=== PATIENT | male | born 1945 | race Caucasian/White ===

== ENCOUNTER 2022-09-02 12:54 | Outpatient (CLI) | payer MEDICARE, SELFPAY | END 2022-09-02 12:55 | disposition home or self-care (01) | LOC: ANHAUDIO 12:56 | PROVIDERS: PCP Nurse Practitioner Family; Visit Provider Otolaryngology | DX: H93.19 Tinnitus, unspecified ear (principal); H90.3 Sensorineural hearing loss, bilateral | CPT/HCPCS: 92557; 92567 ==

== ENCOUNTER 2024-08-16 12:09 | Emergency (ER) | payer MEDICARE, SELFPAY ==
[2024-08-16 12:23] VITALS: PULSE 80; RESP 16; TEMP 36.7; O2SAT 95
--- NOTE | 2024-08-16 12:30 | ED.URI ---
HPI - URI/Sore Throat General Chief Complaint: Upper Respiratory Infection Stated Complaint: Sinus infection Time Seen by Provider: 08/16/24 12:30 Source: patient Mode of arrival: ambulatory Limitations: no limitations History of Present Illness HPI Narrative: 78-year-old male presents with complaint of postnasal drainage, nasal and sinus congestion, sinus pressure, sinus headaches for the past 10 days. Worsening of postnasal drainage and sinus pressure over the last 2 days. Afebrile. No chest pain or shortness of breath. All systems reviewed and negative except as noted above. Related Data Home Medications ?Medication ?Instructions ?Recorded ?Confirmed ?Last Taken ?Type apixaban 5 mg tablet (Eliquis) 5 mg PO BID 05/09/23 08/16/24 Unknown History lisinopril 20 mg tablet 20 mg PO BID 05/09/23 08/16/24 Unknown History metoprolol tartrate 50 mg tablet 50 mg PO BID 05/09/23 08/16/24 Unknown History Allergies Allergy/AdvReac Type Severity Reaction Status Date / Time Sulfa (Sulfonamide Allergy Unknown Unknown Verified 08/16/24 12:22 Antibiotics) Review of Systems Review of Systems: CONSTITUTIONAL: Denies fever, chills, or sweats. EYES: Denies visual changes, redness, or discharge. ENT: Reports rhinorrhea, congestion, sinus pressure, postnasal drainage. Denies sore throat, or otalgia. CARDIOVASCULAR: Denies chest pain, palpitations, or edema. RESPIRATORY: Denies cough or dyspnea. GASTROINTESTINAL: Denies abdominal pain, nausea, vomiting, or diarrhea. GENITOURINARY: Denies dysuria or hematuria. SKIN: Denies rash or itching. MUSCULOSKELETAL: Denies back pain, joint pain, or myalgia. NEUROLOGIC: Denies headache, numbness, or weakness. PSYCHIATRIC: Denies anxiety or depression. All other systems reviewed are negative, except as documented in HPI. [facility]LY [facility] Past Medical History Medical History Atrial fibrillation Chronic atrial fibrillation Dyslipidemia Essential (primary) hypertension Hypertension Tinnitus Surgical History Surgical History History of hernia surgery 2006 - right inguinal hernia [place] teeth extracted Family History Family History Other Family history of atrial fibrillation Hypertension Social History Social History Social History: Caffeine-none Smoking status: Former smoker Tobacco type: cigarettes Second hand tobacco smoke exposure: No Smoking end date: 07/11/81 Alcohol intake: never Substance use: never Substance use type: does not use Lack of Transportation: No Lack of Food: Never True Current Housing: I Have Housing Concerned About Future Housing: No Difficulty Paying Gas/Electric Bills: No Difficulty Paying for Meds: Decline to Answer Currently Unemployed: No Education: High School Diploma/GED Difficulty w/ Childcare or Family Care: No Gender identity (if verbalized by the patient): Male Comments At time of signature, agree with nursing past medical, surgical, social and family history. There is no relevant family history pertinent to the presenting complaint. Exam Narrative: GENERAL: This is a well-nourished, well-developed patient, in no apparent distress. HEAD: normocephalic, atraumatic. EYES: PERRL. Sclera clear/white. Vision is grossly intact. EARS: External ears normal, auditory canals clear and without drainage, TMs normal without perforation. Hearing grossly intact. NOSE: External nose normal with congestion, purulent nasal drainage, erythema and swelling to bilateral nares. Frontal sinus tenderness on palpation. THROAT: Mucous membranes moist, erythematous with postnasal drainage. No swelling or exudates. NECK: Neck supple, non-tender without lymphadenopathy, masses or thyromegaly. CARDIOVASCULAR: Regular rate and rhythm without murmurs, gallops, or rubs. RESPIRATORY: Clear to auscultation. Breath sounds equal bilaterally. No wheezes, rales, or rhonchi. SKIN: warm, Dry, intact with no suspicious lesions or rash, good texture and turgor. NEURO: awake, alert, and oriented to person, place and time. There were no obvious focal neurologic abnormalities. EXTREMITIES: No joint tenderness, effusion, or edema noted. Course Course Level of Care: Express Care Visit Vital Signs Vital signs: Vital Signs Temperature 36.7 C 08/16/24 12:23 Pulse Rate 80 08/16/24 12:23 Respiratory Rate 16 02/06/25 12:23 Pulse Oximetry 95 08/16/24 12:23 Temperature 36.7 C 08/16/24 12:23 Pulse Rate 80 08/16/24 12:23 Respiratory Rate 16 08/16/24 12:23 Blood Pressure 147/97 H 08/16/24 12:38 Pulse Oximetry 95 08/16/24 12:23 Reviewed MDM - URI/Sore Throat MDM Narrative Medical decision making narrative: Will treat patient with antibiotic for bacterial sinusitis due to duration of symptoms and exam findings. Patient is alert, nontoxic. No respiratory distress. Please be advised this is a medical document. It is intended for [id number] communication. It is written in medical language and may contain unfamiliar abbreviations or verbiage. Medical documents are intended to carry relevant information, facts as evident, and the clinical opinion of the practitioner at the time of the encounter. This report may have been done utilizing a voice recognition system. Attempts have been made to correct errors. However, there may be uncorrected grammatical, spelling, and recognition errors present. The file time of this note does not necessarily represent the time of service. Differential Diagnosis Differential diagnosis: Likely upper respiratory infection, sinusitis and viral infection Discharge Plan Discharge Clinical Impression: Acute bacterial sinusitis Patient Disposition: Home, Self-Care Condition: Stable Instructions: Antibiotic Form, Sinusitis (ED) Additional Instructions: Take antibiotic as prescribed until gone. Continue Coricidin and Flonase daily. May take Benadryl as needed at bedtime to treat congestion. Place cool mist humidifier in bedroom where you sleep. Drink at least 64 oz of water a day. Follow-up with your doctor if symptoms are not improving. Patient Language: Thai Prescriptions: New amoxicillin 875 mg tablet 875 mg PO Q12H 7 Days Qty: 14 0RF No Action lisinopril 20 mg tablet 20 mg PO BID Eliquis 5 mg tablet 5 mg PO BID metoprolol tartrate 50 mg tablet 50 mg PO BID azelastine 137 mcg (0.1 %) spray,non-aerosol 137 mcg intranasal . q.h.s. Qty: 30 3RF Rx Instructions: administer into each nostril q.h.s. clotrimazole 1 % solution 1 applic topical . as direct Qty: 30 3RF Rx Instructions: put 4 drops in each ear 3 times per week at bedtime with ear up for 1 minute after amlodipine 5 mg tablet 5 mg PO DAILY Qty: 90 0RF clotrimazole 1 % solution 1 applic topical TID Qty: 30 2RF Rx Instructions: put 4 drops in right ear canal t.i.d. with ear up for 1 minute afterwards Follow-up/Referrals: Shital Hummel MD [Primary Care Provider] - Time of Disposition: 12:36
[2024-08-16 12:38] VITALS: BP 147/97
== END 2024-08-16 12:46 | disposition home or self-care (01) ==
PROVIDERS: Emergency Provider Nurse Practitioner Family; PCP Family Medicine
DX: J01.90 Acute sinusitis, unspecified (principal); Z87.891 Personal history of nicotine dependence; I48.20 Chronic atrial fibrillation, unspecified; I10 Essential (primary) hypertension; E78.5 Hyperlipidemia, unspecified; Z79.01 Long term (current) use of anticoagulants
CPT/HCPCS: 99213; G0463

== ENCOUNTER 2025-04-18 00:12 | Emergency (ER) | payer MEDICARE, SELFPAY ==
[2025-04-18] VITALS (8 sets, daily range): BP systolic 156–192; BP diastolic 95–116; PULSE 70–84; RESP 13–19; TEMP 36.6; O2SAT 99–100
--- NOTE | ~2025-04-18 | CT_ITS ---
EXAMINATION: CTA brain carotid DATE: 04/18/2025 06:50 INDICATION: Neck pain. TECHNIQUE: Computed tomographic angiography (CTA) of the head was performed without and with 100 mL Omnipaque-350 intravenous contrast. CTA of the neck was performed with intravenous contrast. Automated exposure control and iterative reconstruction technique were employed. The dose-length product was 1939.70 mGy- cm. Maximum intensity projection and volume rendered 3D-reconstructions were created by the technologist on a separate workstation. COMPARISON: None. FINDINGS: HEAD CTA: There are cystic areas in the deep white matter of the frontal and parietal lobes. There is no intracranial hemorrhage, acute infarction, or abnormal intracranial mass lesion. The ventricles are normal in size. The orbits are normal. There is mild mucosal thickening in the ethmoid sinuses. The mastoid air cells are normal. The vertebral arteries are codominant. There is no significant stenosis of basilar artery or the posterior cerebral arteries. There is no significant stenosis of the intracranial internal carotid arteries or anterior or middle cerebral arteries. Anterior communicating artery is normal. The posterior communicating arteries are normal. There is no aneurysm. NECK CTA: There is a 2.7 cm nodule in right thyroid lobe. There are no pathologically enlarged lymph nodes. There is no significant stenosis of the vertebral arteries. There is mild plaque in the proximal internal carotid arteries. There is 0% stenosis of the proximal right internal carotid artery relative to normal distal artery lumen diameter (NASCET criteria). There is 0% stenosis of the proximal left internal carotid artery relative to normal distal artery lumen diameter. There is severe cervical spondylosis. IMPRESSION: 1. Cystic areas in the deep white matter of the frontal and parietal lobes, which may be prominent perivascular spaces or cystic encephalomalacia. 2. No aneurysm or significant intracranial arterial stenosis. 3. 0% stenosis of the proximal internal carotid arteries relative to normal distal artery lumen diameters (NASCET criteria). Reviewed, dictated and finalized at location E. IMPRESSION: 1. Cystic areas in the deep white matter of the frontal and parietal lobes, whi ch may be prominent perivascular spaces or cystic encephalomalacia. 2. No aneurysm or significant intracranial arterial stenosis. 3. 0% stenosis of the proximal internal carotid arteries relative to normal dis [place] artery lumen diameters (NASCET criteria).
--- NOTE | 2025-04-18 00:49 | ECG_ITS ---
Test Date: 2025-04-18 01:55:28 Measurements Intervals [place] Rate: 65 P: 0 IN: 0 QRS: -12 QRSD: 178 T: -10 QT: 450 QTc: 471 Interpretive Statements ATRIAL FIBRILLATION WITH ABERRANT CONDUCTION OR VENTRICULAR PREMATURE COMPLEXES RIGHT BUNDLE BRANCH BLOCK INFERIOR INFARCT, AGE INDETERMINATE BASELINE WANDER- V3 ABNORMAL ECG No previous ECG available for comparison Electronically Signed On 04-18-2025 10:09:07 CDT by Shane Loving D.O.
--- NOTE | 2025-04-18 00:50 | PC.NURSE ---
EDP Anand notified of patient's presentation and symptoms. Per EDP Anand, order CMP, CBC, UA, and EKG.
[2025-04-18 02:04] LABS: Hematocrit 41.4 % (42.0-52.0); Hemoglobin 13.6 g/dL (14.0-18.0); Immature Granulocyte Percent A 0.3 % (0-0.5); Immature Platelet Fraction Pct 1.4 % (0.9-11.2); Lymphocytes Absolute Auto 0.79 K/mm3 (0.9-3.2); Mean Corpuscular HGB Conc 32.9 g/dl (32-36); Mean Corpuscular Hemoglobin 29.1 pg (26-34); Mean Corpuscular Volume 88.5 fl (80-100); Nucleated Red Blood Cells Absolute Auto 0.000 K/mm3 (0.0-0.012); Nucleated Red Blood Cells Perc 0.0 % (0.0-0.2); Platelet Count Result 124 k/mm3 (150-375); Red Blood Count 4.68 M/mm3 (4.6-6.20); White Blood Count 6.7 K/mm3 (4.5-10.0)
[2025-04-18 02:13] LABS: Alanine Aminotransferase 26 U/L (6-50); Albumin Level 4.3 g/dL (3.5-5.1); Alkaline Phosphatase 70 U/L (38-126); Anion Gap 9 mmol/L (4-12); Aspartate Amino Transferase 34 U/L (17-59); Bilirubin,Total 1.4 mg/dL (0.2-1.3); Blood Urea Nitrogen 27 mg/dL (9-20); Calcium 9.3 mg/dL (8.4-10.2); Carbon Dioxide 24 mmol/L (22-30); Chloride 107 mmol/L (98-107); Estimated CRCL calculation 85 ml/min; Estimated Glomerular Filt Rate > 60; Glucose 102 mg/dL (65-110); Potassium 4.0 mmol/L (3.4-5.0); Sodium 140 mmol/L (137-145); Total Protein 7.4 g/dL (6.3-8.2)
[2025-04-18 03:12] LABS: Add Urine Microscopic? YES; Appearance Urine Clear (Clear); Glucose Urine UA Negative (Negative); Leukocyte Esterase Ur Trace LEU/UL (Negative); Nitrate Urine Negative (Negative); Non Pathogenic Casts 0-2; Specific Grav Ur 1.015 (1.001-1.035)
--- NOTE | 2025-04-18 06:42 | ED.RECABL ---
HPI - Recheck/Abnormal Lab/Rx General Chief Complaint: Recheck/Abnormal Lab/Rx Stated Complaint: elevated BP Time Seen by Provider: 04/18/25 06:22 Source: patient Mode of arrival: ambulatory Limitations: no limitations History of Present Illness HPI narrative: Patient presents with concern for elevated blood pressure since yesterday morning. He states that he felt funny although how so is hard to describe. Because of this, he checked his blood pressure at home when it was 180/100. He has a history of hypertension but He does not check it regularly otherwise. He has a blood pressure cuff. His heat treat inspector is Dr Moon. He is on amlodipine 5 mg daily and there have been no dose changes recently. He did take an extra (i.e. 2nd) dose at approximately 11:00 p.m.. His PCP is Dr Hummel (sometimes sees the [facility]). He is on Eliquis although unlikely. He reports having cardioversion performed in 1992 and he knows that he had a history of CHF which prompted that procedure though he does not know if he has a history of atrial fibrillation. Denies any history of DVT/PE valve replacement. Patient has subjective left lower extremity lymphedema which he states is chronic. Patient otherwise is asymptomatic and has no complaints including denying dizziness, headache, nausea, shortness of breath. It was reported that after patient was placed in the exam room and blood pressure was read checked he had complained of a throbbing sensation in his bilateral neck. He states that this happened 4 or 5 times in succession but then stopped and has not recurred since while waiting. He denies any dysuria, urgency, frequency, or hematuria. Related Data Home Medications ?Medication ?Instructions ?Recorded ?Confirmed ?Last Taken ?Type apixaban 5 mg tablet (Eliquis) 5 mg PO BID 05/09/23 08/16/24 Unknown History lisinopril 20 mg tablet 20 mg PO BID 05/09/23 08/16/24 Unknown History metoprolol tartrate 50 mg tablet 50 mg PO BID 05/09/23 08/16/24 Unknown History Allergies Allergy/AdvReac Type Severity Reaction Status Date / Time Sulfa (Sulfonamide Allergy Unknown Unknown Verified 08/16/24 12:22 Antibiotics) [facility] Past Medical History Medical History History of cardioversion 1992 Tinnitus Hypertension Atrial fibrillation Chronic atrial fibrillation Essential (primary) hypertension Dyslipidemia Surgical History Surgical History [place] teeth extracted History of hernia surgery 2006 - right inguinal hernia Family History Family History Other Family history of atrial fibrillation Hypertension Social History Social History Social History: Caffeine-none Smoking status: Former smoker Tobacco type: cigarettes Second hand tobacco smoke exposure: No Smoking end date: 07/11/81 Alcohol intake: never Substance use: never Substance use type: does not use Lack of Transportation: No Lack of Food: Never True Current Housing: I Have Housing Concerned About Future Housing: No Difficulty Paying Gas/Electric Bills: No Difficulty Paying for Meds: Decline to Answer Currently Unemployed: No Education: High School Diploma/GED Difficulty w/ Childcare or Family Care: No Gender identity (if verbalized by the patient): Male Exam Narrative: GENERAL: Well-appearing, well-nourished, and in no acute distress. HEAD: Normocephalic, atraumatic. EYES: Non injected, non icteric ENT: Nares clear, no rhinorrhea or epistaxis. Gross auditory acuity intact. NECK: Supple. No meningismus. CHEST: Speaking in full sentences. No respiratory distress. Lungs clear to auscultation bilaterally without appreciable wheezes or crackles. HEART: Irregularly IRegular rate and rhythm. . ABDOMEN: Soft, nondistended. EXTREMITIES: Normal range of motion. No bilateral lower extremity edema. SKIN: Warm, dry, no rash. NEURO: No focal deficits. Alert and oriented. Answering questions. Following commands. Normal speech without aphasia or dysarthria. PSYCH: Normal mood and affect. Course Vital Signs Vital signs: Vital Signs Temperature 97.8 F 04/18/25 00:40 Pulse Rate 70 04/18/25 00:40 Respiratory Rate 18 04/18/25 00:40 Blood Pressure 170/99 H 04/18/25 00:40 Pulse Oximetry 100 04/18/25 00:40 Temperature 97.8 F 04/18/25 00:40 Pulse Rate 78 04/18/25 07:16 Respiratory Rate 13 04/18/25 07:16 Blood Pressure 156/98 H 04/18/25 08:06 Pulse Oximetry 99 04/18/25 07:16 MDM - Recheck/Abnormal Lab/Rx MDM Narrative Medical decision making narrative: Patient presents with report of concern for elevated blood pressure since yesterday morning. He has a history of hypertension and has been on amlodipine 5 mg daily without any recent dose changes. He reports feeling funny though unable to describe how and that prompted him to checks blood pressure at home at which time it was 180/100. He is otherwise asymptomatic under review of symptoms. He did take a 2nd dose of his amlodipine at 11:00 p.m.. In the emergency department he is afebrile with vital signs notable for hypertension. On reassessment the systolic blood pressure is improved the diastolic blood pressure is worse, no interval intervention. Patient has Afib on EKG; he does not know if he has a history of this per se as it does not sound familiar to him however he is on Elliquis and he reports having cardioversion performed in 1992 and I do see chronic afib in [facility]; thus this is not a new diagnosis. He has a normocytic anemia, less than 1 g drop from previous. He also has stable mild thrombocytopenia. Mild azotemia. Urinalysis with bacteriuria and trace leukocyte esterase. given he is otherwise asymptomatic, will defer treatment but urine culture is ordered. On my bedside assessment patient's solid blood pressure is 192. We discussed that there is no role for precipitously dropping blood pressure especially not to normal levels but I had ordered a one time dose of labetalol. However, when the nurse went to bedside, his systolic blood pressure was in the 150s to 160s. Labetalol held. We discussed that his workup and not revealed any evidence of end-organ damage or dysfunction and that the best evidence shows that follow up in the outpatient setting is best. He has a cuff and I advised keeping a log for the next several days/week(s) and taking this to his PCP to discuss if he needs a dose increase, medication change, or an additional medication. Patient otherwise stable for discharge. Differential Diagnosis Differential diagnosis: Likely other (Hypertension, hypertensive urgency, hypertensive emergency. Consideration of carotid stenosis or other pathology) Lab Data Attestation: I reviewed the patient's lab results. 04/18/25 01:52 04/18/25 01:52 Labs: Lab Results 04/18/25 04/18/25 Range/Units 01:52 02:36 WBC 6.7 (4.5-10.0) K/mm3 RBC 4.68 (4.6-6.20) M/mm3 Hgb 13.6 L (14.0-18.0) g/dL Hct 41.4 L (42.0-52.0) % MCV 88.5 (80-100) fl MCH 29.1 (26-34) pg MCHC 32.9 (32-36) g/dl RDW 13.9 (11.5-14.5) % Plt Count 124 L (150-375) k/mm3 MPV 9.5 (7.4-10.4) fl Immature Gran % (Auto) 0.3 (0-0.5) % Neut % (Auto) 79.0 H (45.5-73.1) % Lymph % (Auto) 11.7 L (18.3-44.2) % [place] % (Auto) 7.1 (2.6-8.5) % Eos % (Auto) 1.3 (0-4.4) % Baso % (Auto) 0.6 (0.2-1.2) % Lymph # (Auto) 0.79 L (0.9-3.2) K/mm3 [place] # (Auto) 0.5 (0.1-0.6) K/mm3 Eos # (Auto) 0.1 (0-0.3) K/mm3 Baso # (Auto) 0.0 (0.0-0.1) K/mm3 Abs Immat Gran (auto) 0.02 (0.00-0.031) K/mm3 Absolute Neuts (auto) 5.3 (1.3-6.7) K/mm3 Absolute Nucleated RBC 0.000 (0.0-0.012) K/mm3 Nucleated RBC % 0.0 (0.0-0.2) % % Immature Plt Fraction 1.4 (0.9-11.2) % Sodium 140 (137-145) mmol/L Potassium 4.0 (3.4-5.0) mmol/L Chloride 107 (98-107) mmol/L Carbon Dioxide 24 (22-30) mmol/L Anion Gap 9 (4-12) mmol/L BUN 27 H (9-20) mg/dL Creatinine 0.79 (0.7-1.3) mg/dL Estim Creat Clear Calc 85 ml/min Estimated GFR > 60 (59 - ) Glucose 102 (65-110) mg/dL Calcium 9.3 (8.4-10.2) mg/dL Magnesium 2.1 (1.6-2.3) mg/dL Total Bilirubin 1.4 H (0.2-1.3) mg/dL AST 34 (17-59) U/L ALT 26 (6-50) U/L Alkaline Phosphatase 70 (38-126) U/L Total Protein 7.4 (6.3-8.2) g/dL Albumin 4.3 (3.5-5.1) g/dL Urine Color Yellow (Yellow) Urine Appearance Clear (Clear) Urine pH 5.0 (5.0-9.0) Ur Specific [place] 1.015 (1.001-1.035) Urine Protein Negative (Negative) mg/dL Urine Glucose (UA) Negative (Negative) mg/dL Urine Ketones Negative (Negative) mg/dL Ur Blood (Man) Negative (Negative) Urine Nitrate Negative (Negative) Urine Bilirubin Negative (Negative) Urine Urobilinogen 0.2 (<2.0) mg/dL Leukocyte Esterase Rfl Trace H (Negative) JAVI/UL Urine RBC 0-2 (0-2) /hpf Urine WBC 0-5 (0-3) /hpf Ur Squamous Epith Cells None seen (Few) /hpf Urine Bacteria 1+ H /hpf Urine Casts 0-2 Imaging Data Radiologist's impression: Impressions Head/Neck CTA 04/18/25 07:20 IMPRESSION: 1. Cystic areas in the deep white matter of the frontal and parietal lobes, which may be prominent perivascular spaces or cystic encephalomalacia. 2. No aneurysm or significant intracranial arterial stenosis. 3. 0% stenosis of the proximal internal carotid arteries relative to normal distal artery lumen diameters (NASCET criteria). ECG Data EKG #1: Attestation: I personally reviewed and interpreted this ECG as follows: ECG completion date: 04/18/25 ECG completion time: 01:55 Prior ECG tracings: not available for review (no prior for comparison) Interpretation: ( Unclear why initially not transmitting) irregularly irregular rhythm without P-waves consistent with atrial fibrillation. There are aberrant beats/premature complexes. RBBB given QRS greater [id number]; RSR' M-shaped pattern in V1-V3; wide, slurred S wave in lateral leads (I, aVL, V5-6). Poor R-wave progression across the precordial leads. T-wave inversions in 3 and AVF but upright in contiguous lead 2. There also T-wave inversions in V3, possibly due to lead placement. Discharge Plan Discharge Clinical Impression: Hypertension, Anemia, Thrombocytopenia Patient Disposition: Home Condition: Stable Instructions: Antibiotic Form, Chronic Hypertension (DC), Anemia (ED) Additional Instructions: As we discussed, your workup was reassuring in terms of not showing that there has been any organ damage from your high blood pressure. Continues your blood pressure cuff to check your blood pressure over the next several days to week and take a log of these measurements to your appointment with your primary care physician/provider. call to make a follow-up appointment. Continue to take your medication as prescribed in the interim. Return to the emergency department with any new or worsening symptoms. Patient Language: Chadian Prescriptions: No Action amoxicillin 875 mg tablet 875 mg PO Q12H 7 Days Qty: 14 0RF lisinopril 20 mg tablet 20 mg PO BID Eliquis 5 mg tablet 5 mg PO BID metoprolol tartrate 50 mg tablet 50 mg PO BID azelastine 137 mcg (0.1 %) spray,non-aerosol 137 mcg intranasal . q.h.s. Qty: 30 3RF Rx Instructions: administer into each nostril q.h.s. amlodipine 5 mg tablet 5 mg PO DAILY Qty: 90 0RF clotrimazole 1 % solution 1 applic topical TID Qty: 30 2RF Rx Instructions: put 4 drops in right ear canal t.i.d. with ear up for 1 minute afterwards clotrimazole 1 % solution 1 applic topical . as direct Qty: 30 3RF Rx Instructions: put 4 drops in each ear 3 times per week at bedtime with ear up for 1 minute afterwards Follow-up/Referrals: Shital Hummel MD [Primary Care Provider, [facility]] Time of Disposition: 07:37
[2025-04-18 07:07] LABS: Magnesium 2.1 mg/dL (1.6-2.3)
== END 2025-04-18 08:11 | disposition home or self-care (01) ==
PROVIDERS: Emergency Provider Student in an Organized Health Care Education/Training Program; PCP Family Medicine
DX: I11.0 Hypertensive heart disease with heart failure (principal); D64.9 Anemia, unspecified; D69.6 Thrombocytopenia, unspecified; I48.20 Chronic atrial fibrillation, unspecified; I50.9 Heart failure, unspecified; E78.5 Hyperlipidemia, unspecified; Z87.891 Personal history of nicotine dependence; Z79.899 Other long term (current) drug therapy; Z79.01 Long term (current) use of anticoagulants
CPT/HCPCS: 36415; 70496; 70498; 80053; 81001; 83735; 85025; 85055; 87077; 87086; 87186; 93005; 99284; Q9967